=== PATIENT | female | born 1960 | race Caucasian/White ===

== ENCOUNTER 2017-11-08 19:34 | Emergency (ER) | payer OTHER ==
[~2017-11-08] VITALS: Ht 175.3 cm; Wt 91.6 kg
[~2017-11-08 19:34] MED LIST: ATENOLOL 100MG100 MG PO; BENADRYL25 MG PO; BLOOD PRESSURE MED; EPIPEN0.3 MG/0.3 IM; LEXAPRO; PEPCID40 MG PO; PREDNISONE 10 M10 M1 PO
[2017-11-08 19:57] LABS: ABSOLUTE NEUTROPHILS 4.5 thou/uL (1.4-8.2); BASOPHILS 0.7 % (0.0-2.0); HEMATOCRIT 39.1 % (37.0-47.0); HEMOGLOBIN 13.6 gm/dL (12.0-15.0); LYMPHOCYTES 12.1 % (24.0-44.0); MCH 28.5 pg (26.0-34.0); MCHC 34.8 g/dL (28.0-37.0); MCV 81.8 fL (80.0-100.0); MONOCYTES 11.2 % (1.0-8.0); PLATELET COUNT 145 thou/uL (150-400); RBC 4.78 mil/uL (4.20-5.00); RDW 13.9 % (10.5-14.5)
[2017-11-08 20:09] LABS: CALCIUM 9.4 mg/dL (8.5-10.1); CREATININE 0.9 mg/dL (0.6-1.0); POTASSIUM 3.2 mmol/L (3.5-5.1)
[2017-11-08 20:15] LABS: DIRECT BILIRUBIN 0.1 mg/dL (<0.1-0.3); TOTAL BILIRUBIN 0.5 mg/dL (<0.1-1.0)
[2017-11-08 21:08] LABS: URINE BILIRUBIN NEGATIVE (Negative); URINE BLOOD NEGATIVE (Negative); URINE CLARITY CLEAR; URINE COLOR YELLOW; URINE GLUCOSE-RANDOM* NEGATIVE (Negative); URINE KETONES 1+ (Negative); URINE NITRITE-REFLEX NEGATIVE (Negative); URINE PROTEIN (DIPSTICK) TRACE (Negative)
[2017-11-08 21:15] LABS: URINE LEUKOCYTES-REFLEX TRACE (Negative)
[2017-11-08] MEDS ORDERED: ZOFRAN ODT4 MG PO (23:20)
[2017-11-08] MEDS ORDERED: NAPROSYN500 MG PO (23:20)
== END 2017-11-08 23:48 | disposition home or self-care (01) ==
LOC: ER 19:34
PROVIDERS: Emergency Medicine
DX: R50.9 Fever, unspecified (principal); R51 Headache; R11.0 Nausea; I10 Essential (primary) hypertension